=== PATIENT | female | born 1995 | race Two or more races ===

== ENCOUNTER 2018-07-23 23:18 | Inpatient (IN) | payer MEDICAID ==
[~2018-07-23] VITALS: Ht 154.9 cm; Wt 59.9 kg
[2018-07-23] MEDS ORDERED: DEXT 5%/LR + PITOCIN 20UNITS/L 1,000 ML IV SCH (23:47)
[2018-07-24] MEDS ORDERED: BUTORPHANOL TARTRATE 2 MG/ML VIAL IV PRN
[2018-07-24] MEDS ORDERED: NALOXONE HCL 0.4 MG/ML 1ML VIAL IM PRN
[2018-07-24] MEDS ORDERED: METHYLERGONOVINE MALEATE 0.2 MG/ML IM PRN
[2018-07-24] MEDS ORDERED: LIDOCAINE HCL 1% 20ML VIAL (Pyxis) INJ INFIL SCH
[2018-07-24] MEDS ORDERED: LACTATED RINGERS 1,000 ML IV SCH
[2018-07-24] MEDS ORDERED: CARBOPROST TROMETHAMINE 250 MCG/ML AMPUL IM PRN
[2018-07-24] MEDS ORDERED: PENICILLIN G POTASSIUM 5 MMU in DEXT 5% WATER 100 ML IV NR (00:30)
[2018-07-24] MEDS ORDERED: BENZOCAINE/LANOLIN/ALOE VERA SPRAY TOP PRN (00:45)
[2018-07-24] MEDS ORDERED: IBUPROFEN 400MG TABLET PO PRN (00:45)
[2018-07-24] MEDS ORDERED: GLYCERIN/WITCH HAZEL LEAF MEDICATED PAD TOP PRN (00:45)
[2018-07-24] MEDS ORDERED: BISACODYL 10MG SUPP PR PRN (00:45)
[2018-07-24] MEDS ORDERED: ACETAMINOPHEN WITH CODEINE 300/30MG TABLET PO PRN ×2 (00:45)
[2018-07-24 00:46] LABS: BASOPHILS % 0.2 % (0.0-2.0); EOSINOPHILS % 0.9 % (0.0-5.0); HEMOGLOBIN. 10.7 g/dL (12.0-16.0); LYMPHOCYTES % 21.5 % (20.0-50.0); MEAN CORPUSCULAR HEMOGLOBIN 26.1 pg (28.0-32.0); MEAN PLATELET VOLUME 10.2 fl (7.4-10.4); MONOCYTES % 7.4 % (2.0-8.0); PLATELET 249 x1000/uL (130-400); RED BLOOD CELL COUNT 4.12 mill/uL (4.2-5.4); RED CELL DISTRIBUTION WIDTH 14.8 % (11.6-14.6)
[2018-07-24 01:11] LABS: INR 0.9; PARTIAL THROMBOPLASTIN TIME 27.3 sec (23.4-31.0); PROTHROMBIN TIME 9.1 sec (9.6-11.0)
[2018-07-24 01:49] LABS: HEPATITIS B SURFACE ANTIGEN NEGATIVE
[2018-07-24] MEDS: DEXT 5%/LR + PITOCIN 20UNITS/L 1,000 ML IV SCH ×2 (02:43→05:58)
[2018-07-24 03:20] VITALS: BP 129/76
[2018-07-24 03:50] VITALS: BP 132/78
[2018-07-24 03:51] LABS: CLARITY URINE CLEAR (CLEAR); COLOR URINE YELLOW (YELLOW); KETONES URINE NEGATIVE (NEGATIVE); LEUKOCYTE ESTERASE URINE NEGATIVE (NEGATIVE); NITRITE URINE NEGATIVE (NEGATIVE); OCCULT BLOOD URINE 3+ (NEGATIVE); PROTEIN URINE NEGATIVE (NEGATIVE); UROBILINOGEN URINE 0.2 E.U./dL (0.2-1.0)
[2018-07-24 04:03] LABS: *AMPHETAMINES SCREEN URINE NEGATIVE (NEGATIVE); *BARBITURATES SCREEN URINE NEGATIVE (NEGATIVE); *BENZODIAZEPINES SCREEN URINE NEGATIVE (NEGATIVE); *COCAINE SCREEN URINE NEGATIVE (NEGATIVE)
[2018-07-24 04:04] LABS: CANNABINOID URINE SCREEN NEGATIVE (NEGATIVE); METHADONE URINE SCREEN NEGATIVE (NEGATIVE); OPIATES URINE SCREEN NEGATIVE (NEGATIVE); PHENCYCLIDINE URINE SCREEN NEGATIVE (NEGATIVE)
[2018-07-24 07:50] VITALS: BP 103/60
[2018-07-24] MEDS: MAGNESIUM/ALUMINUM HYDROXIDE/SIMETHICONE 30ML UDC PO SCH ×3 (09:01→17:30)
[2018-07-24] MEDS: SIMETHICONE 80MG TABLET CHEW PO SCH ×3 (09:01→18:36)
[2018-07-24] MEDS: PRENATAL VIT/FE FUMARATE/FA TABLET PO SCH (09:01)
[2018-07-24 16:00] VITALS: BP 112/71
[2018-07-24 20:00] VITALS: BP 108/57
[2018-07-24] MEDS ORDERED: DOCUSATE SODIUM 100MG CAPSULE PO SCH (21:00)
[2018-07-25 04:00] VITALS: BP 113/78
[2018-07-25] MEDS ORDERED: FERROUS SULFATE 325MG TABLET PO SCH (07:30)
[2018-07-25 07:43] LABS: BASOPHILS % 0.3 % (0.0-2.0); EOSINOPHILS % 1.7 % (0.0-5.0); HEMATOCRIT. 29.7 % (36.0-48.0); HEMOGLOBIN. 9.7 g/dL (12.0-16.0); LYMPHOCYTES % 20.9 % (20.0-50.0); MEAN CORPUSCULAR HEMOGLOBIN 26.2 pg (28.0-32.0); MEAN CORPUSCULAR VOLUME 80.2 fL (81.0-99.0); MEAN PLATELET VOLUME 9.8 fl (7.4-10.4); MONOCYTES % 7.1 % (2.0-8.0); PLATELET 220 x1000/uL (130-400); RED CELL DISTRIBUTION WIDTH 15.3 % (11.6-14.6)
[2018-07-25] MEDS: MAGNESIUM/ALUMINUM HYDROXIDE/SIMETHICONE 30ML UDC PO SCH (08:24)
[2018-07-25] MEDS: SIMETHICONE 80MG TABLET CHEW PO SCH (08:25)
[2018-07-25] MEDS: PRENATAL VIT/FE FUMARATE/FA TABLET PO SCH (08:25)
[2018-07-25 09:00] VITALS: BP 122/74
[2018-07-25 16:00] VITALS: BP 118/74
== END 2018-07-25 20:00 | disposition home or self-care (01) | DRG 560 ==
LOC: OBSVTOIN 23:18 → 8 EST LDRP 23:18 → 8EST 07-24 03:37
PROVIDERS: ADMIT Obstetrics & Gynecology; ATTEND Obstetrics & Gynecology
PROC: 10E0XZZ Delivery of Products of Conception, External Approach (ICD-10-PCS; principal; 2018-07-24)
DX: O77.0 Labor and delivery complicated by meconium in amniotic fluid (principal); D64.9 Anemia, unspecified; O70.0 First degree perineal laceration during delivery; Z37.0 Single live birth; Z3A.40 40 weeks gestation of pregnancy; O99.02 Anemia complicating childbirth
CPT/HCPCS: 36415; 80305; 86592; 86703; 86762; 86850; 86900; 87340; 99281; J2540; J2590; J3490; J7060; J7120

== ENCOUNTER 2019-11-18 08:13 | Emergency (ER) | payer MEDICAID ==
[~2019-11-18] VITALS: Ht 160 cm; Wt 52.0 kg
[2019-11-18] MEDS ORDERED: LIDOCAINE 1%/EPI 1:100,000 10 ML VIAL IJ ONE (09:15)
[2019-11-18] MEDS ORDERED: TETANUS, DIPHTHERIA, PERTUSSIS VAC/PF 0.5ML (>7YR OLD) IM ONE (09:15)
[2019-11-18] MEDS ORDERED: ACETAMINOPHEN 325MG TABLET PO ONE (09:15)
[2019-11-18] MEDS ORDERED: BACITRACIN ZINC OINT UDPKT TOP ONE (09:15)
[2019-11-18 09:25] LABS: BASOPHILS % 0.2 % (0.0-2.0); EOSINOPHILS % 1.2 % (0.0-5.0); HEMATOCRIT. 38.9 % (36.0-48.0); HEMOGLOBIN. 12.7 g/dL (12.0-16.0); LYMPHOCYTES % 13.4 % (20.0-50.0); MEAN CORPUSCULAR HEMOGLOBIN 27.3 pg (28.0-32.0); MEAN CORPUSCULAR VOLUME 83.4 fL (81.0-99.0); MEAN PLATELET VOLUME 8.5 fl (7.4-10.4); MONOCYTES % 4.9 % (2.0-8.0); NEUTROPHILS % 80.3 % (40.0-76.0); PLATELET 260 x1000/uL (130-400); RED BLOOD CELL COUNT 4.66 mill/uL (4.2-5.4); RED CELL DISTRIBUTION WIDTH 15.5 % (11.6-14.6)
[2019-11-18 09:33] LABS: CHLORIDE 108 mEq/L (98-107)
[2019-11-18 09:50] LABS: CLARITY URINE CLEAR (CLEAR); COLOR URINE YELLOW (YELLOW); KETONES URINE TRACE (NEGATIVE); LEUKOCYTE ESTERASE URINE 1+ (NEGATIVE); NITRITE URINE NEGATIVE (NEGATIVE); OCCULT BLOOD URINE NEGATIVE (NEGATIVE); PH URINE 5.5 (4.5-8.0); PROTEIN URINE 1+ (NEGATIVE); SPECIFIC GRAVITY URINE 1.027 (1.005-1.030)
[2019-11-18 10:12] LABS: *AMPHETAMINES SCREEN URINE NEGATIVE (NEGATIVE); *BARBITURATES SCREEN URINE NEGATIVE (NEGATIVE); *BENZODIAZEPINES SCREEN URINE NEGATIVE (NEGATIVE); *COCAINE SCREEN URINE NEGATIVE (NEGATIVE); METHADONE URINE SCREEN NEGATIVE (NEGATIVE); OPIATES URINE SCREEN NEGATIVE (NEGATIVE)
[2019-11-18 10:13] LABS: PHENCYCLIDINE URINE SCREEN NEGATIVE (NEGATIVE)
[2019-11-18 10:15] LABS: CANNABINOID URINE SCREEN PRESUMTIVE POSITIVE (NEGATIVE)
[2019-11-18 12:20] VITALS: BP 98/65
== END 2019-11-18 12:26 | disposition home or self-care (01) ==
LOC: ER 08:20
DX: S01.81XA Laceration without foreign body of other part of head, initial encounter (principal); R56.9 Unspecified convulsions; W18.30XA Fall on same level, unspecified, initial encounter; Y93.89 Activity, other specified; Y92.89 Other specified places as the place of occurrence of the external cause; Y99.8 Other external cause status
CPT/HCPCS: 12011; 36415; 70450; 71045; 80053; 80305; 81003; 81025; 85025; 85610; 90471; 90715; 93005; 99285; J3490

== ENCOUNTER 2020-08-10 04:53 | Emergency (ER) | payer MEDICAID ==
[~2020-08-10] VITALS: Ht 157.5 cm; Wt 53.0 kg
[2020-08-10] MEDS ORDERED: FLUTICASONE PROPIONATE 50MCG/SPRAY BOTTLE BOTHNSTRLS STA (05:38)
[2020-08-10] MEDS ORDERED: ONDA4TAB5 PO (05:43)
[2020-08-10] MEDS ORDERED: TOPUD PO (05:44)
[2020-08-10] MEDS ORDERED: ONDANSETRON HCL 4MG TABLET PO ONE (05:45)
[2020-08-10] MEDS ORDERED: ACETAMINOPHEN 325MG TABLET PO ONE (05:45)
[2020-08-10 06:34] VITALS: BP 106/67
== END 2020-08-10 06:49 | disposition home or self-care (01) ==
LOC: ER 04:53
DX: J02.9 Acute pharyngitis, unspecified (principal); Z20.822 Contact with and (suspected) exposure to COVID-19; Z86.59 Personal history of other mental and behavioral disorders
CPT/HCPCS: 87070; 87430; 99283; C9803; Q0162; U0003; U0005

== ENCOUNTER 2020-10-27 14:07 | Emergency (ER) | payer MEDICAID, OTHER ==
[~2020-10-27] VITALS: Ht 154.9 cm; Wt 55.0 kg
[~2020-10-27 14:07] MED LIST: ONDA4TAB5 PO; TOPUD PO
[2020-10-27] MEDS ORDERED: ACETAMINOPHEN 325MG TABLET PO STA (16:38)
[2020-10-27 17:38] LABS: BASOPHILS % 0.3 % (0.0-2.0); EOSINOPHILS % 1.8 % (0.0-5.0); HEMOGLOBIN. 13.4 g/dL (12.0-16.0); LYMPHOCYTES % 20.5 % (20.0-50.0); MEAN CORPUSCULAR HEMOGLOBIN 27.9 pg (28.0-32.0); MEAN CORPUSCULAR VOLUME 85.5 fL (81.0-99.0); MEAN PLATELET VOLUME 8.8 fl (7.4-10.4); MONOCYTES % 5.2 % (2.0-8.0); NEUTROPHILS % 72.2 % (40.0-76.0); PLATELET 282 x1000/uL (130-400); RED CELL DISTRIBUTION WIDTH 15.5 % (11.6-14.6)
[2020-10-27 17:39] LABS: CHLORIDE 107 mEq/L (98-107)
[2020-10-27 19:15] VITALS: BP 120/83
== END 2020-10-27 19:23 | disposition home or self-care (01) ==
LOC: ER 14:07
DX: R07.89 Other chest pain (principal); G40.909 Epilepsy, unspecified, not intractable, without status epilepticus; F12.10 Cannabis abuse, uncomplicated
CPT/HCPCS: 36415; 71045; 80053; 84484; 85025; 93005; 99285

== ENCOUNTER 2021-01-14 18:18 | Emergency (ER) | payer MEDICAID, OTHER ==
[~2021-01-14] VITALS: Ht 154.9 cm; Wt 56.0 kg
[2021-01-14] MEDS ORDERED: IBUP-2028 MT (22:25)
[2021-01-14] MEDS ORDERED: KEPP500 MT (22:25)
[2021-01-14] MEDS ORDERED: MAGNESIUM/ALUMINUM HYDROXIDE/SIMETHICONE 30ML UDC PO ONE (22:30)
[2021-01-14] MEDS ORDERED: IBUPROFEN 400MG TABLET PO ONE (22:30)
[2021-01-14 23:52] VITALS: BP 125/76
== END 2021-01-14 23:57 | disposition home or self-care (01) ==
LOC: ER 18:18
DX: R07.89 Other chest pain (principal); Z76.0 Encounter for issue of repeat prescription; F12.10 Cannabis abuse, uncomplicated; Z79.899 Other long term (current) drug therapy
CPT/HCPCS: 71045; 81025; 93005; 99283

== ENCOUNTER 2021-08-08 08:43 | Emergency (ER) | payer OTHER ==
[~2021-08-08] VITALS: Ht 154.9 cm; Wt 56.0 kg
[~2021-08-08 08:43] MED LIST changes: +IBUP-2028 MT; +KEPP500 MT
[2021-08-08] MEDS ORDERED: ACETAMINOPHEN 325MG TABLET PO STA (08:59)
[2021-08-08 09:43] LABS: BASOPHILS % 0.4 % (0.0-2.0); EOSINOPHILS % 4.7 % (0.0-5.0); HEMATOCRIT. 38.5 % (36.0-48.0); HEMOGLOBIN. 12.8 g/dL (12.0-16.0); LYMPHOCYTES % 29.5 % (20.0-50.0); MEAN CORPUSCULAR HEMOGLOBIN 27.5 pg (28.0-32.0); MEAN CORPUSCULAR VOLUME 82.3 fL (81.0-99.0); MEAN PLATELET VOLUME 8.4 fl (7.4-10.4); MONOCYTES % 9.1 % (2.0-8.0); NEUTROPHILS % 56.3 % (40.0-76.0); PLATELET 283 x1000/uL (130-400); RED BLOOD CELL COUNT 4.68 mill/uL (4.2-5.4)
[2021-08-08 09:47] LABS: CHLORIDE 107 mEq/L (98-107)
[2021-08-08] MEDS ORDERED: TOPUD PO (12:03)
[2021-08-08 12:35] VITALS: BP 124/77
== END 2021-08-08 13:00 | disposition home or self-care (01) ==
LOC: ER 08:43
DX: R07.89 Other chest pain (principal)
CPT/HCPCS: 36415; 71045; 80053; 83880; 84484; 85025; 93005; 99285